=== PATIENT | female | born 1970 | race Caucasian/White ===

== ENCOUNTER → 2016-12-23 | Outpatient (CLI) | payer OTHER ==
[~2016-12-23] MED LIST: CETI10TA84 PO; PRENTAB26 PO; RANI150T3 PO
[2016-12-23 10:03] LABS: CHOLESTEROL/HDL RATIO 5.3; THYROID STIMULATING HORMONE 3.62 uIu/ml (0.300-4.500)
== END | disposition home or self-care (01) ==
LOC: C.LAB 07:21
PROVIDERS: ATTEND Internal Medicine
DX: Z00.00 Encounter for general adult medical examination without abnormal findings (principal)

== ENCOUNTER → 2017-04-30 | Outpatient (CLI) | payer OTHER | END | disposition home or self-care (01) | LOC: C.PAPS 11:41 | PROVIDERS: ATTEND Obstetrics & Gynecology | DX: Z12.4 Encounter for screening for malignant neoplasm of cervix (principal) ==

== ENCOUNTER → 2017-05-03 | Outpatient (CLI) | payer OTHER | END | disposition home or self-care (01) | LOC: C.LABBFT 08:11 | PROVIDERS: ATTEND Internal Medicine | DX: R19.8 Other specified symptoms and signs involving the digestive system and abdomen (principal) ==

== ENCOUNTER → 2017-06-09 | Outpatient (CLI) | payer OTHER ==
[2017-06-09 17:48] LABS: BLOOD UREA NITROGEN 12 mg/dl (7-18); BUN/CREATININE RATIO 13.3 (10-20); CARBON DIOXIDE 31 mmol/L (21-32); CHLORIDE 103 mmol/L (98-107); CREATININE 0.88 mg/dl (0.60-1.20); GLUCOSE 108 mg/dl (70-99); POTASSIUM 4.1 mmol/L (3.5-5.1); SODIUM 139 mmol/L (136-145)
== END | disposition home or self-care (01) ==
LOC: C.LABBFT 13:02
PROVIDERS: ATTEND Internal Medicine
DX: R94.6 Abnormal results of thyroid function studies (principal); I10 Essential (primary) hypertension; N94.3 Premenstrual tension syndrome

== ENCOUNTER → 2017-07-27 | Outpatient (CLI) | payer OTHER ==
--- NOTE | 2017-07-28 05:53 | PAP/PSG TECHNICIAN REPORT ---
[facility] Automobile Wrecker Polysomnogram Report Study name: None Report date: 07/28/2017 Study date: 07/27/2017 Referring Physician: RV. ADLER MD Name: FELICIA OCHOA Interpreting Physician: Andrew Mcdowell M.D. Date of : 1970 Automobile Wrecker: Magali Arcos RPS. Sex: Female Age: 47 Study Type: PSG Weight: 243 lbs Height: 47 years, Height 5' 9" BMI: 35.88 Medications: RANITIDINE 150 MG, ONDANSETRON 4 MG, MIRENA 52 MG, MULTI VIT, OMEGA 3, VIT B-COMPLEX, ZYRTEC 10 MG, ENALAPRIL 10 MG, CYCLOBENZAPRINE 10 MG, TUMERIC Patient History 46 yr-old female here for a baseline study. She has a history of HTN, fatigue, restless sleep, and frequent awakenings. Her Kiefer scale is 6. The test was started on room air. ETCO2 testing was not utilized during this study. Room 1 Parameters Monitored NPSG: E1-M2, E2-M1, Fp1-M2, Fp2-M1, F3-M2, F4-M2, F4-M1, C3-M2, C4-M2, C4-M1, O1-M2, O2-M2, O2-M1, T3-M2, T4-M1, P3-M2, P4-M1, CHIN1, CHIN2, HR, EKG, Legs, PFLOW, SNOR, FLOW, CFLOW, Tidal Volume, THOR, ABDO, SpO2, PLTH, CPRESS, ETCO2 Wave, ETCO2, pH Sleep Architecture Sleep Stages Time at Lights Off 10:05:55 PM STAGES Time (min.) TST (%) Time at Lights On 5:10:55 AM Wake 104.5 -- Total Recording Time (TRT) 425.00 min. N1 50.5 16 Total Sleep Period (TSP) 386.0 min. N2 168.5 53 Total Sleep Time (TST) 320.5min. N3 4.0 1 Awake Time 104.5 min. REM 97.5 30 Wake after Sleep Onset 81.0 min. Sleep Efficiency (SE) 75 % Sleep Onset Latency (JUANITO) 23.5 min. Number of Stage 1 Shifts None Awakenings 7 Stage Changes 39 Number of REM periods 4 REM 97.5 30 REM Latency 72.0 min. NREM 223.0 70 Body Position Analysis Supine Right Left Side Prone Vertical Total Sleep Time (min.) 194.1 46.3 109.9 156.19 0.0 0.0 Total Sleep Time (%) 51% 14% 34% 49 0% N/A% Total Sleep Time REM (min.) 36.5 28.5 32.5 None 0.0 0.0 Total Sleep Time NREM (min.) 127.8 17.8 77.4 None 0.0 0.0 Intermittent Wake (min.) 29.8 11.8 62.9 None 0.0 0.0 Total Sleep Period (%) 43% None None None None None Arousals Myoclonus (PLM) * Events Count Index Events Count Index Spontaneous 28 5 Events Awake (PLMW) 83 47.7 Respiratory 9 1.9 Events Asleep w/ Arousal (PLMA) 6 1.1 PLM 6 1 Events Asleep w/o Arousal (PLMS) 67 12.5 Snoring 13 2 Total Asleep 73 13.7 Total 56 10 Total 156 22 Respiratory Analysis * CA OA MA CH H RERA Total Count 0 0 0 0 25 7 25 Index 0.0 0.0 0.0 0 4.7 1 6.0 Mean Duration 0.0 0.0 0.0 0.00 18.8 18.7 18.8 Longest Duration 0.0 0.0 0.0 0.00 0.0 23.1 46.9 Respiratory Event Summary Total Supine ~Supine Right Left Prone REM NREM Apneas Count 0 0 0 0 0 N/A 0 0 Index 0.0 0 0 0.0 0.0 N/A 0 0 Hypopneas (4% Desat) Count 25 15 10 5 5 N/A 24 1 Index 4.7 5.5 4 6.5 2.7 N/A 14.8 0.3 Apneas & All Hypopneas Count 25 15 10 5 5 N/A 24 1 Index 4.7 5 4 6 3 N/A 14.8 0.3 Respiratory Events (Wheat Inspector+All Hyp+RERA) Count 25 17 15 7 8 N/A 24 1 Index 6.0 6 6 9.1 4.4 N/A 17.8 0.8 Respiratory Related Arousal Count 9 17 6 2 4 N/A 8 2 Index 1.9 1 2 3 2 N/A 5 1 Snoring Analysis Supine Right Left Prone REM NREM Total Snore duration 64.8 min Snores count 1,812 119 786 N/A 430 2,287 2,717 Snore mean duration 1.4 Sec Snores index 662 154 429 N/A 264.6 615.3 508.6 TST with snoring (%) 20.2% Desaturation Event Summary: Minimum %SpO2 Event Count Mean/Min/Max Duration(sec.) Desaturation Index % Time In Bed > 90 39 29.3 / 8.3 / 58.8 5.9 96.9 86 - 90 3 14.0 / 10.5 / 18.3 14.4 3.0 81 - 85 0 N/A 0.0 0.0 76 - 80 0 N/A 0.0 0.0 71 - 75 0 N/A 0.0 0.0 66 - 70 0 N/A 0.0 0.0 61 - 65 0 N/A 0.0 0.0 56 - 60 0 N/A 0.0 0.0 51 - 55 0 N/A 0.0 0.0 < 50 0 N/A 0.0 0.0 Total REM NREM Awake <50% 0.0 min. 0.0 min. 0.0 min. 0.0 min. 51 - 60% 0.0 min. 0.0 min. 0.0 min. 0.0 min. 61 - 70% 0.0 min. 0.0 min. 0.0 min. 0.0 min. 71 - 80% 0.0 min. 0.0 min. 0.0 min. 0.0 min. 81 - 90% 12.5 min. 11.1 min. 0.8 min. 0.6 min. 91 - 100% 397.3 min. 86.4 min. 222.2 min. 88.8 min. Average 93 93 93 94 Minimum SpO2 85 85 90 88 Desaturation Event Index 5.6 16.0 1.1 6.3 # Desat. Events below 89% 12 11 N/A 1 Time(%) with Saturation below 89% 0.5 0.5 0.0 0.0 Time(min.) with Saturation below 89% 2.0 1.9 0.0 0.1 Time (mins) REM (mins) NREM (mins) % of TST SpO2 Below 90% 25 24 N1 1.3 SpO2 Below 88% 5 0 0 0 Heart Rate Analysis Min (bpm) Max (bpm) Average (bpm) Awake 60 91 68 NREM 56 86 66 REM 58 94 66 Overall 56 94 66 Supplemental O2 Values Minimum O2 level: None Value Start Time End Time Automobile Wrecker Comments Ms. Ochoa slept in the right, left, and supine positions. No cardiac arrhythmias were noted. Some PLMs were noted. No bruxism noted. Snoring was noted and scored as a 2-3 on a scale of 1 through 5. (0=no snoring, 5=snoring loud enough to be heard through a closed door or down the becker way) She awoke to use the restroom one time during the night. Ms. Ochoa stated that she slept about the same as usual. She woke up again a little after 5 am, and requested to end the study at that time. The final report will be interpreted and signed by a sleep physician. The completed physician report will then be placed in the patient medical record. Therapy (cm H2O) 0 TIB (min.) 425.0 TST (min.) 320.5 Sleep Onset (min.) 23.5 REM Onset From Sleep (min.) 72.0 Sleep Efficiency % 75 Wakefulness (%) 25 Wakefulness (min.) 104.5 NREM 1 (%) 16 NREM 1 (min.) 50.5 NREM 2 (%) 53 NREM 2 (min.) 168.5 NREM 3 (%) 1 NREM 3 (min.) 4.0 REM (%) 30 REM (min.) 97.5 # Arousals 56 Arousal Index 10 # Snore 2,717 Snore Index 508.6 AHI 4.7 AHI Supine 5 AHI Non-Supine 4 NREM AHI 0.3 REM AHI 14.8 RDI 6.0 # Obstructive Apnea 0 # Central Apnea 0 # Mixed Apnea 0 # Hypopneas 25 RERAs 7 Total Respiratory Events 32 Time Below SpO2 89% (min.) 1.9 Mean NREM SpO2 (%) 93 Mean REM SpO2 (%) 93 Mean Sleep SpO2 (%) 93 Min NREM SpO2 (%) 90 Min REM SpO2 (%) 85 Position Supine (min.) 194.1 Position Non-supine (min.) 156.2 LM Index Sleep 13.7 LM Index NREM 12.1 LM Index REM 17.2 Mean Heart Rate (bpm) 66 Min Heart Rate (bpm) 56
--- NOTE | 2017-07-30 14:05 | POLYSOMNOGRAPH REPORT ---
CLINICAL DATA: A 47-year-old female with a BMI of 35.[address] Anderson with hypertension, fatigue, restless sleep, and frequent awakenings. Her [place] sleepiness score was 6/24. SLEEP ARCHITECTURE: Total sleep period was 386 minutes. Total sleep time was 320.5 minutes divided between 222 minutes of non-REM sleep and 97.5 minutes of REM sleep. Sleep onset latency was 23.5 minutes. REM latency was 72 minutes. Sleep efficiency was 75%. Wake after sleep onset was 81 minutes. Sleep consisted of stage N1 16%, stage IIN2 53%, stage N3 1%, and REM 30%. AROUSAL DATA: Fifty six arousals were recorded for an index of 10 per hour. PERIODIC LIMB MOVEMENT DATA: Seventy three limb movements during sleep were noted for an index of 13.7 per hour with arousal index of 1.1 per hour. RESPIRATORY DATA: Very mild/borderline sleep apnea/hypopnea was noted. The AHI was 5. The RDI was 6. There were 25 hypopneic episodes with the mean duration of 18.8 seconds. There were 7 RERAs. The longest RERA was 23.1 seconds. OXIMETRY DATA: Mild hypoxemia was seen. Oxygen karen was 85% during REM. The mean saturation of 93%. Time below 88% was 5 minutes. ECHOCARDIOGRAM: Heart rates ranged from 56-94 beats per minute. No arrhythmias were noted. FREEZER LABORATORY TECHNICIAN'S COMMENTS: The patient slept in the right, left, and supine positions. Snoring was mild to moderate, rated 2-3 on a scale of 1-5. She awoke after 5:00 a.m. and requested to end the study at that time. IMPRESSION: Mild sleep apnea/hypopnea with an apnea/hypopnea index of 5 and a respiratory disturbance index of 6 with transient nocturnal hypoxemia. RECOMMENDATIONS: The patient may benefit from weight loss, use of an oral appliance, and a repeat sleep study with CPAP. Clinical correlation is needed. ALBAN
== END | disposition home or self-care (01) ==
LOC: C.NEUR 20:00
PROVIDERS: ATTEND Internal Medicine
DX: R53.83 Other fatigue (principal); E66.9 Obesity, unspecified; G47.9 Sleep disorder, unspecified

== ENCOUNTER → 2017-08-18 | Outpatient (CLI) | payer OTHER ==
--- NOTE | 2017-08-18 14:57 | MAMMOGRAPHY REPORT ---
BILATERAL DIGITAL SCREENING MAMMOGRAM TOMOSYNTHESIS WITH CAD: 08/18/2017 CLINICAL HISTORY: Routine screening. The patient has no current complaints. TECHNIQUE: Breast tomosynthesis in addition to standard 2D mammography was performed. Current study was also evaluated with a Computer Aided Detection (CAD) system. COMPARISON: Comparison is made to exams dated: 06/24/2016 mammogram, 01/14/2015 mammogram, 07/14/2012 m ammogram, and 04/29/2011 mammogram - [facility]. BREAST COMPOSITION: There are scattered areas of fibroglandular density in both breasts. FINDINGS: No suspicious masses, calcifications, or areas of architectural distortion are noted in ei ther breast. There has been no significant interval change compared to prior exams. IMPRESSION: ACR BI-RADS CATEGORY 1: NEGATIVE There is no mammographic evidence of malignancy. A 1 year screening mammogram is recommended. The pa tient will receive written notification of the results. Approximately 10% of breast cancers are not detected with mammography. A negative mammographic report should not delay biopsy if a clinically suggestive mass is present. Aliyah Castro M.D. ah/:08/18/2017 07:41:05 Piper Helper: Noemi FIGUEROA(R)(M), [facility] letter sent: Normal 1/2 BI-RADS Code: ACR BI-RADS Category 1: Negative
== END | disposition home or self-care (01) ==
LOC: C.MAMM 07:22
PROVIDERS: ATTEND Obstetrics & Gynecology
DX: Z12.31 Encounter for screening mammogram for malignant neoplasm of breast (principal)

== ENCOUNTER → 2017-08-30 | Outpatient (CLI) | payer OTHER | END | disposition home or self-care (01) | LOC: C.LABBFT 15:34 | PROVIDERS: ATTEND Physician Assistant | DX: E03.9 Hypothyroidism, unspecified (principal) ==

== ENCOUNTER → 2017-10-20 | Outpatient (CLI) | payer OTHER | END | disposition home or self-care (01) | LOC: C.LABBFT 07:15 | PROVIDERS: ATTEND Internal Medicine | DX: R19.7 Diarrhea, unspecified (principal) ==

== ENCOUNTER → 2017-10-27 | Outpatient (CLI) | payer OTHER | END | disposition home or self-care (01) | LOC: C.LAB 13:06 → C.LABBFT 13:06 → EDSTATUS 13:34 | PROVIDERS: ATTEND Physician Assistant | DX: E03.9 Hypothyroidism, unspecified (principal) ==

== ENCOUNTER → 2017-12-21 | Outpatient (CLI) | payer OTHER ==
[2017-12-21 12:51] LABS: BLOOD UREA NITROGEN 11 mg/dl (7-18); CARBON DIOXIDE 27 mmol/L (21-32); CHOLESTEROL 170 mg/dl (0-200); CREATININE 0.78 mg/dl (0.60-1.20); GLUCOSE 92 mg/dl (70-99); POTASSIUM 4.4 mmol/L (3.5-5.1); SODIUM 139 mmol/L (136-145)
[2017-12-21 12:52] LABS: LDL CHOLESTEROL CALCULATED 89 mg/dl
== END | disposition home or self-care (01) ==
LOC: C.LABBFT 07:46
PROVIDERS: ATTEND Internal Medicine
DX: Z00.00 Encounter for general adult medical examination without abnormal findings (principal); I10 Essential (primary) hypertension

== ENCOUNTER 2020-07-29 06:02 | Observation (INO) ==
--- NOTE | 2020-07-09 14:53 | PAT Medication Instructions ---
Medication Instructions Date of Service July 09, 2020 Home Medications Medication Instructions Recorded qnulvmmsve-eqgszrzzyzcsh-jvukyptk 1 cap PO Q8H PRN #20 cap 03/13/20 50 mg-300 mg-40 mg capsule azelastine 137 mcg (0.1 %) nasal See Rx Instructions INTRANASAL BID 07/05/20 spray aerosol #30 ml mupirocin 2 % topical ointment 1 applic TOPICAL .qhs #15 g 07/05/20 cetirizine 10 mg capsule 10 mg PO QAM cholecalciferol (vitamin D3) 25 mcg (1,000 unit) capsule 1,000 units PO QAM colestipol 1 gram tablet 1 - 2 gm PO BID multivitamin 1 tab PO QAM turmeric 400 mg capsule 400 mg PO QAM vitamin B complex 1 tab PO QAM omega-3 fatty acids 1,000 mg capsule 1,000 mg PO QAM cyclobenzaprine 10 mg tablet 10 mg PO HS PRN cvjdxiuzbt-xprjuzpyldzio-iepjseet 50 mg-300 mg-40 mg capsule 1 cap PO Q8H PRN garlic 1,000 mg capsule 1,000 mg PO QAM enalapril maleate 10 - 20 mg PO BID fluocinolone acetonide oil 1 - 2 drp OTIC (EAR) DAILY PRN levothyroxine 75 - 150 mcg PO QAM azelastine 137 mcg (0.1 %) nasal spray aerosol See Rx Instructions INTRANASAL BID mupirocin 2 % topical ointment 1 applic TOPICAL STOP taking 2 weeks before surgery If surgery is within 2 weeks, stop taking as soon as possible. turmeric 400 mg capsule 400 mg PO QAM omega-3 fatty acids 1,000 mg capsule 1,000 mg PO QAM garlic 1,000 mg capsule 1,000 mg PO QAM STOP taking 48 hours before surgery colestipol 1 gram tablet 1 - 2 gm PO BID STOP taking 24 hours before surgery mupirocin 2 % topical ointment 1 applic TOPICAL DO NOT take the morning of surgery cetirizine 10 mg capsule 10 mg PO QAM cholecalciferol (vitamin D3) 25 mcg (1,000 unit) capsule 1,000 units PO QAM multivitamin 1 tab PO QAM vitamin B complex 1 tab PO QAM sifohuzztu-cexobiuganidv-clwhksvj 50 mg-300 mg-40 mg capsule 1 cap PO Q8H PRN enalapril maleate 10 - 20 mg PO BID Take morning of surgery With a small sip of water, OTHERWISE NOTHING TO EAT OR DRINK AFTER MIDNIGHT: fluocinolone acetonide oil 1 - 2 drp OTIC (EAR) DAILY PRN (if needed) levothyroxine 75 - 150 mcg PO QAM azelastine 137 mcg (0.1 %) nasal spray aerosol See Rx Instructions INTRANASAL BID Take evening before surgery cyclobenzaprine 10 mg tablet 10 mg PO HS PRN (if needed) yimoqzojjy-mjjqthvdxltvy-ghbnizqb 50 mg-300 mg-40 mg capsule 1 cap PO Q8H PRN (if needed) enalapril maleate 10 - 20 mg PO BID fluocinolone acetonide oil 1 - 2 drp OTIC (EAR) DAILY PRN (if needed) azelastine 137 mcg (0.1 %) nasal spray aerosol See Rx Instructions INTRANASAL BID Other Notes If you have any questions please call us at [phone] or [phone] or [phone] or [phone]
--- NOTE | 2020-07-10 11:09 | Anesthesiology Consultation ---
Date of Service July 10, 2020 Assessment & Plan (1) Encounter for pre-operative examination: COVID Status: As of 07/10 assessment, patient denies travel to endemic area, known exposure/sick contacts, or symptoms of COVID19. Patient instructed that they and their household members must follow strict social distancing guidelines, wear a mask in public and avoid travel/events/gatherings for 14 days prior to surgery. Preoperative COVID19 testing to be completed prior to surgery per surgeon's arrangements. Patient made aware to self-isolate as much as possible between COVID testing and surgery. HCG AM DOS Chart Review Chart Review: Acceptable Risk for Surgery and Patient seen in Pre Admission Testing Teaching & Discussion Instructed NPO after midnight before surgery, except medications with 15 cc of water. Medication instructions provided according to the PAT guidelines. History Surgery Operation Date: 07/29/20 10:10 Proposed Procedures p Robotic Total Laparoscopic Hysterectomy - Janneth Phoenix MD, FACOG Height/Weight Height: 5 ft 7 in Weight: 105.4 kg Allergies Allergy/AdvReac Type Severity Reaction Status Date / Time Penicillins Allergy Intermediate HIVES Verified 07/10/20 09:13 Sulfa (Sulfonamide Allergy Intermediate HIVES Verified 07/10/20 09:13 Antibiotics) amoxicillin Allergy Unknown Hives Verified 07/10/20 09:13 moxifloxacin [From Avelox] Allergy Unknown Hives Verified 07/10/20 09:13 nickel Allergy Unknown ITCHING, Verified 07/10/20 09:13 RASH Quinolones Allergy Unknown HIVES Verified 07/10/20 09:13 Medications Home Medications Medication Instructions Recorded Confirmed Last Taken cetirizine 10 mg capsule 10 mg PO QAM cap 05/03/19 07/10/20 Unknown cholecalciferol (vitamin D3) 25 1,000 units PO QAM 05/03/19 07/10/20 Unknown mcg (1,000 unit) capsule colestipol 1 gram tablet 1 - 2 gm PO BID tab 05/03/19 07/10/20 Unknown multivitamin 1 tab PO QAM 05/03/19 07/10/20 Unknown turmeric 400 mg capsule 400 mg PO QAM cap 05/03/19 07/05/20 Unknown vitamin B complex 1 tab PO QAM 05/03/19 07/10/20 Unknown cyclobenzaprine 10 mg tablet 10 mg PO HS PRN 03/05/20 07/10/20 Unknown qkvomrygdy-cfccbedwvdmfi-jmhfajvh 1 cap PO Q8H PRN #20 cap 03/13/20 07/10/20 Unknown 50 mg-300 mg-40 mg capsule garlic 1,000 mg capsule 1,000 mg PO QAM 05/09/20 07/10/20 Unknown enalapril maleate 10 - 20 mg PO BID 06/19/20 07/10/20 Unknown fluocinolone acetonide oil 1 - 2 drp OTIC (EAR) DAILY PRN 06/19/20 07/10/20 Unknown levothyroxine 75 - 150 mcg PO QAM 06/19/20 07/10/20 Unknown azelastine 137 mcg (0.1 %) nasal See Rx Instructions INTRANASAL BID 07/05/20 07/10/20 Unknown spray aerosol #30 ml mupirocin 2 % topical ointment 1 applic TOPICAL .qhs #15 g 07/05/20 07/10/20 Unknown Past Medical History Medical History Abnormal mammogram Anxiety Dyslipidemia Esophageal reflux External hemorrhoids Fear of flying Female infertility Gastric paresis Headache Hiatal hernia Hypertension Hypothyroidism IUD strings lost Litigation Muscle spasms of neck Nasal polyps Temporomandibular joint disorder Ulnar neuropathy Uterus fibroma Exercise / Class Metabolic Activity II 4-5 Yardwork/Stairs/Walk up hill (Denies CP or SOB with 1 FOS) Past Family History Family History Mother Autoimmune disease Hypertension Grandmother Cancer Grandfather (Maternal) Cancer Grandmother (Maternal) Myocardial infarction Daughter No family history of adverse response to anesthesia Other No family history of bleeding disorder Denies family history of Ovarian cancer Prostate cancer Breast cancer Colorectal cancer Past Surgical History Surgical History History of anesthesia reaction Hx of cholecystectomy Hx of umbilical hernia repair S/P colonoscopy S/P dilatation and curettage S/P tonsillectomy Status post hysteroscopy [place] teeth extracted Past Anesthesia History No Hx of Anesthesia Complications (other than PONV) and No Family Hx of Anesthesia Complications History of PONV History of PONV and Hx of Motion Sickness Social History Smoking Status: Former smoker Do You Dip or Chew Tobacco: No Smoking End Date: QUIT 2007 Hx Alcohol Use: No Hx Substance Use: No Review of Systems Pt denies any recent chest pain, shortness of breath, palpitations, cough, fever, URI, or uncontrolled acid reflux (controlled). Physical Exam Vital Signs BP: 127/84 P: 75bpm SPO2: 95% RA T: 98.3 F R: 16 ENMT Mouth: + chipped teeth (small chip in lower incisor); no dental restorations and no loose teeth Thyromental Distance: > or= 3.5 Finger Breadths Mallampati Class: II Anterior airway Neck + thick neck; neck extension not limited Respiratory normal respiratory effort, lungs clear to auscultation Cardiovascular RRR, no murmur, no edema Testing Laboratory Results 07/10/20 11:35 07/10/20 11:35 Blood Type O Positive 07/10/20 11:35 Antibody Screen NEGATIVE 07/10/20 11:35
[2020-07-10 12:18] LABS: Basophils # (auto) 0.05 K/uL (0-0.2); Basophils % (auto) 0.7 %; Eosinophils # (auto) 0.19 K/uL (0-0.5); Eosinophils % (auto) 2.6 %; Hematocrit (blood only) 41.3 % (37-47); Hemoglobin 14.5 g/dL (12.0-16.0); Immature Granulocytes # (auto) 0.03 K/uL (0.00-0.02); Immature Granulocytes % (auto) 0.4 %; Lymphocytes # (auto) 3.32 K/uL (1.2-3.4); Lymphocytes % (auto) 45.7 %; Mean Corpuscular Hemoglobin 31.5 pg (25-34); Mean Corpuscular Hgb Conc 35.1 g/dL (32-36); Mean Corpuscular Volume 89.6 fL (80-100); Mean Platelet Volume 10.5 fL (7.4-10.4); Monocytes # (auto) 0.34 K/uL (0.11-0.59); Monocytes % (auto) 4.7 %; Neutrophils # (auto) 3.33 K/uL (1.4-6.5); Neutrophils % (auto) 45.9 %; Platelet Count 333 K/uL (130-400); RDW Coefficient of Variation 12.1 % (11.5-14.5); RDW Standard Deviation 38.8 fL (36.4-46.3); Red Blood Count 4.61 M/uL (4.2-5.4); White Blood Count 7.26 K/uL (4.8-10.8)
[2020-07-10 12:31] LABS: BUN Creatinine Ratio 17.1 (10-20); Calcium 10.1 mg/dl (8.5-10.1); Creatinine Clr Calc Pharmacy 111.8 ml/min; Est GFR (African American) 106.8; Est GFR (Non-African American) 92.1; Potassium 4.2 mmol/L (3.5-5.1)
[~2020-07-29 06:02] MED LIST changes: -CETI10TA84 PO; +CLINDAMYCIN 600 MG/54 ML BAG IV SCH; +GENTAMICIN SULFATE 120 MG in DEXTROSE 5% 100 ML IV SCH; +LACTATED RINGER'S 1,000 ML IV SCH; +LR 15ML/HR IV SCH; -PRENTAB26 PO; -RANI150T3 PO
[2020-07-29] MEDS ORDERED: SCOPOLAMINE 1.5 MG TDSY TD ONE (06:29)
[2020-07-29] MEDS ORDERED: PROPOFOL IV EMULSION 10 MG/ML 20 ML VIAL IV ONE ×4 (06:48→09:53)
[2020-07-29] MEDS ORDERED: MIDAZOLAM HCL 1 MG/ML 2ML VIAL ONE ×2 (06:48→07:13)
[2020-07-29] MEDS ORDERED: fentaNYL citrate 100 MCG/2 ML VIAL ONE ×2 (06:48→09:55)
[2020-07-29] MEDS ORDERED: NEOSTIGMINE METHYLSULFATE 5 MG/5 ML SYR ONE (06:48)
[2020-07-29] MEDS ORDERED: DEXAMETHASONE SOD INJ 4 MG/ML VIAL ONE (06:48)
[2020-07-29] MEDS ORDERED: ONDANSETRON INJ 2 MG/ML 2 ML VIAL ONE (06:48)
[2020-07-29] MEDS ORDERED: ROCURONIUM BROMIDE 10 MG/ML 5 ML VIAL IV ONE (06:48)
[2020-07-29] MEDS ORDERED: LIDOCAINE HCL 2% 2 ML VIAL/AMP(20MG/ML) INFIL ONE (06:48)
[2020-07-29] MEDS ORDERED: GLYCOPYRROLATE 0.2 MG/ML VIAL ONE (06:48)
[2020-07-29] MEDS ORDERED: KETOROLAC 30 MG/ML VIAL ONE (06:49)
[2020-07-29] MEDS ORDERED: BUPIVACAINE 0.5 % 5 MG/1 ML MPF 30ML VIAL ONE (06:57)
[2020-07-29] MEDS ORDERED: ONDANSETRON INJ 2 MG/ML 2 ML VIAL IV PRN (06:58)
[2020-07-29] MEDS ORDERED: ePHEDrine sulfate 50 MG/ML AMP IV PRN (06:58)
[2020-07-29] MEDS ORDERED: ATROPINE SULFATE 0.1 MG/ML 10ML SYR IV PRN (06:58)
[2020-07-29] MEDS ORDERED: ACETAMINOPHEN 1000 MG/100 ML IV IV ONE (07:12)
--- NOTE | 2020-07-29 07:26 | History & Physical Bridge Note ---
Date of Service July 29, 2020 History & Physical Bridge Note I have examined the patient, reviewed the History & Physical and in the interval since the performance of the History & Physical I have noted the following changes of clinical significance: no changes noted
[2020-07-29] MEDS ORDERED: TISSEEL FIBRIN SEALANT 4ML TOP ONE (09:39)
[2020-07-29] MEDS ORDERED: ACETAMINOPHEN 325 MG TAB PO PRN (10:13)
[2020-07-29] MEDS ORDERED: oxyCODONE/ACETAMINOPHEN 5mg/325mg TAB PO PRN ×2 (10:13)
[2020-07-29] MEDS ORDERED: MEPERIDINE HCL 25 MG/ML CARP/VIAL IV PRN (10:13)
[2020-07-29] MEDS ORDERED: KETOROLAC 30 MG/ML VIAL IV PRN (10:13)
[2020-07-29] MEDS ORDERED: IBUPROFEN 600 MG TAB PO PRN (10:13)
[2020-07-29] MEDS ORDERED: PROMETHAZINE HCL 12.5 MG in SODIUM CHLORIDE 0.9% 50 ML IV PRN (10:13)
[2020-07-29] MEDS ORDERED: MEPERIDINE HCL 50 MG/ML CARP IV PRN (10:13)
--- NOTE | 2020-07-29 10:13 | Post Operative Brief Note ---
PG Immediate Post Op with CF Date of Surgery July 29, 2020 Pre & Post Diagnosis Operation Date: 07/29/20 07:30 Pre-Op Diagnosis: Menorrhagia Post-Op Diagnosis: Menorrhagia I identified the patient and participated in the time-out.: Yes Procedure Operation Date: 07/29/20 07:30 Actual Procedures p Robotic Assisted Total Laparoscopic Hysterectomy and Bilateral Salpingectomy(Not Applicable) - Janneth Phoenix MD, FACOG Surgeon Janneth Phoenix MD, FACOG Card Runner Renay Estimated Blood Loss 50 Findings Consistent with Post-Op Diagnosis Specimens Specimen Description: Permanent Specimen A: Uterus, Cervix and Bilateral Fallopian tubes Drains Clement Catheter (Clement inserted at start of case by Dr. Phoenix with difficulty, draining clear yellow urine) WASTEWATER DESIGN ENGINEER Major Procedure Codes Hysterectomy 14850 TVH <250g +S/O Miscellaneous 71343 Cystoscopy
[2020-07-29] MEDS ORDERED: LACTATED RINGER'S 1,000 ML IV SCH (10:15)
[2020-07-29] MEDS: fentaNYL citrate 100 MCG/2 ML VIAL IV PRN ×2 (11:00→11:05)
--- NOTE | 2020-07-29 11:34 | Anesthesiology Progress Note ---
Date of Service July 29, 2020 Anesthesia Post Procedure Vital Signs Vital Signs: Temp Pulse Pulse Resp BP BP Pulse Ox 07/29/20 11:15 98.2 F 94 H 12 124/94 98 07/29/20 11:05 92 H 12 123/93 97 07/29/20 10:55 94 H 14 124/91 98 07/29/20 10:45 90 17 129/84 100 07/29/20 10:35 85 16 132/75 100 07/29/20 10:25 98.1 F 82 15 103/72 94 07/29/20 06:58 98.2 F 83 18 144/97 H 97 Pain Intensity Abdomen: Pain Intensity: 4 Transfer of Care Handoff Completed per policy Notes Mental Status: alert / awake / arousable and participated in evaluation Patient Amnestic to Procedure: Yes Nausea / Vomiting: adequately controlled Pain: adequately controlled Airway Patency, RR, SpO2: stable & adequate BP & HR: stable & adequate Hydration State: stable & adequate Anesthetic Complications: no major complications apparent and Pt Satisfied with anesthetic care
--- NOTE | 2020-07-29 15:57 | Operative Report (OR) ---
DATE OF OPERATION: 07/29/2020 PREOPERATIVE DIAGNOSIS: Menorrhagia. POSTOPERATIVE DIAGNOSES: Menorrhagia. PROCEDURE: Total laparoscopic hysterectomy with bilateral salpingectomy and cystoscopy. SURGEON: Janneth Phoenix MD. SCRUM COACH: Nila Niño DO ANESTHESIA: General per endotracheal tube. ESTIMATED BLOOD LOSS: 50 mL FLUIDS: 1000 mL URINE OUTPUT: Approximately 300 mL of clear yellow urine drained from the bladder with removal of the Clement catheter prior to cystoscopy. INDICATIONS: The patient is a 50-year-old white female with a long history of menorrhagia. She had a successful Mirena placement approximately 5-1/2 years ago and then it was recently removed and replaced, it was complicated by expulsion. The patient is now ready to move with definitive surgery and declines other methods for period control. She is not a candidate for estrogen secondary to hypertension. She had thought about ablation, but desires a more definitive therapy. COMPLICATIONS: None. DRAINS: Clement. DISPOSITION: To recovery room in stable condition. DESCRIPTION OF PROCEDURE: The patient was taken to the operating room where she was identified verbally and by [email or web address]. She was placed in dorsal supine position where general anesthesia was induced without difficulty. She was then placed in dorsal lithotomy position in [facility]. Her arms were carefully tucked and draped at her sides and she was prepped and draped in normal sterile fashion. Timeout was held, identifying correct patient, procedure, positioning, and preoperative antibiotics. There were no concerns. Attention was then turned to the vagina where a speculum was placed. The anterior lip of the cervix was grasped with tenaculum. Then the speculum was removed and weighted speculum was placed. The uterus was sounded to 8 cm, dilated to a #21 Hegar dilator. The VCare uterine manipulator was placed into the uterus. The balloon was blown up. It was sutured to the cervix at 3 o'clock 0 Vicryl suture and the gloves were then changed. Attention was then turned to the abdomen where a supraumbilical incision was made with the knife approximately 2 fingerbreadths above the umbilicus. Veress needle was placed through this, opening pressure was 4 mmHg. The abdomen was insufflated with approximately 2.5 liters of carbon dioxide gas. The da Bhupendra camera was then placed through an optical trocar through the supraumbilical incision and direct intra-abdominal placement was confirmed. The gas was then hooked up to this trocar. Then first on the left and then on the right, an 8 mm da Bhupendra trocar sites were placed under direct visualization and the left upper quadrant a 10-mm trocar site was placed. The da Bhupendra surgical first assistant device was then moved to the patient and the trocars were placed into the arms. A bipolar cautery and hot prashant were then placed into the arms and gloves were then changed. Hot Sealing Machine Operator proceeded to the console where first on the left, the tube was excised using hot prashant and cautery. This was brought up through the 10 mm accessory trocar. Then the round ligament and tubo-ovarian ligament were cauterized and cut with hot prashant. This was continued down and the bladder flap was created anteriorly using prashant. The uterine arteries were then taken with cautery and cut with hot prashant. Then, in a similar fashion on the right side, the tube was removed using hot prashant and removed through the 10 mm trocar site. The round ligament and the tubo-ovarian ligament were then cauterized and cut with hot prashant. This was taken down and the bladder flap was created anteriorly to connect to the opposite side. The bladder was pushed down over the V care cup. The uterine artery on the right side was then cauterized and cut using hot prashant. Once the bladder was down and the uterine arteries were appropriately cauterized a colpotomy incision was made in 365 degrees starting anteriorly and proceeding posteriorly. Once the uterine specimen was removed from the vagina, it was then brought through the vagina and removed. A glove was then placed in the vagina. 2-0 V-Loc suture was then used to close the vaginal cuff. There was some struggling with the vaginal cuff because of scarring and redundant rectosigmoid colon. A rake was placed to move away the bowel and we started actually in the middle with our suture because that is where we could see and visualize. Additionally, a third 8mm accessory trocar was placed under direct visualization. We then progressed out to the left vaginal edge where we were sure to get the corner. Then starting on the right edge, we then sewed from the right edge back to the middle. Closing the cuff completely when the glove was removed, there was no hissing or air noted. There was no active bleeding from the cuff. Attention was then turned to cystoscopy where Dr. Niño with a 70-degree scope was able to visualize the entire bladder. There were no stitches in the bladder. Urine was found to be effluxing easily from each ureteral orifice. Cystoscopy was then discontinued. The previous Clement had been removed and a new clean sterile Clement was placed. Tisseel was then placed on the vaginal cuff to help with hemostasis and the procedure was terminated. The da Bhupendra instruments were removed from the vagina. The da Bhupendra surgical first assistant device was disconnected and taken away from the patient. The trocars were removed after gas was released from the abdomen. All incisions were closed with 4-0 Vicryl in a subcuticular fashion, they were infiltrated with 0.5% Marcaine and treated with Dermabond. At the end of the procedure, the vaginal cuff was evaluated using a speculum. There was no active bleeding noted and the cuff was reapproximated well. All sponge, lap and needle counts were correct x2. The patient tolerated the procedure well and was taken to recovery room in stable condition. I attest to the content of the Intraoperative Record and any orders documented therein. Any exceptions are noted below. ALBAN
--- NOTE | 2020-07-30 23:24 | Discharge Summary (DS) ---
ADMITTING DIAGNOSIS: Menorrhagia. DISCHARGE DIAGNOSIS: Menorrhagia. PROCEDURES: Total laparoscopic hysterectomy with bilateral salpingectomy and cystoscopy. HISTORY OF PRESENT ILLNESS: The patient is a 50-year-old white female with a long history of menorrhagia. She had successful Mirena use for 5 years and then had the Mirena recently removed and replaced and unfortunately this was complicated by expulsion. The patient is now admitted to move on with definitive surgery. She declines other progestin methods for period control. Not a candidate for estrogen secondary to hypertension. Had thought about ablation, but desires a more definitive therapy. For the rest of the patient's detailed history and physical, please see her gynecologic history and physical. ASSESSMENT: This is a 50-year-old white female with a history of menorrhagia who desires to move forward with total laparoscopic hysterectomy and salpingectomy. HOSPITAL COURSE: The patient was admitted. She underwent a total laparoscopic hysterectomy, bilateral salpingectomy and cystoscopy without difficulty. ESTIMATED BLOOD LOSS: 50 mL. The patient's postoperative course was uncomplicated. She tolerated a regular diet, ambulated without difficulty, voided after the removal of her Clement catheter, was able to take p.o. pain medications and was discharged home the same day of surgery. She will return in 2 weeks for postoperative examination.
== END 2020-07-29 15:44 | disposition home or self-care (01) ==
LOC: 4S2 06:02 → ASU 06:02